=== PATIENT | female | born 2000 | race Caucasian/White ===

== ENCOUNTER 2023-03-30 22:33 | Emergency (ER) | payer OTHER, SELFPAY ==
[2023-03-30 22:36] VITALS: BP 145/82; PULSE 78; RESP 16; TEMP 36.1; O2SAT 100; BMI 35.9
--- NOTE | 2023-03-30 22:47 | ED.GENADULT ---
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 R hand is painful /swollen. 22-year-old woman presenting to the emergency depart with concern of right hand pain. 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 Cow head struck her right hand into a metal shoot, stantion? She was recommended to be seen but if it was up to her probably would not be seen just yet. Admittedly hurts particularly with flexion of her right hand. No other injuries were noted. Pain is really over the dorsum of the hand. Related Data Home Medications Medication Instructions Recorded Confirmed No Known Home Medications 03/30/23 03/30/23 Allergies Allergy/AdvReac Type Severity Reaction Status Date / Time No Known Drug Allergies Allergy Verified 11/10/21 12:35 Review of Systems Status of ROS: Reports: 6 or more systems reviewed and unremarkable except as noted in History and below [facility] Medical History No significant past medical history Surgical History (Updated 03/30/23 @ 23:03 by Jeffry Brown RN) No significant past surgical history Social History Smoking Status: Never smoker Second hand tobacco smoke exposure: No How often do you have a drink containing alcohol: never How often do you have six or more drinks on one occasion: Never AUDIT-C Alcohol total score: 0 Non-prescribed substance use: denies use Exam Narrative: Exam Narrative: Very pleasant. Dressed in work attire. Tall. Favoring the right hand little bit. Gestures to the area of pain as the 2nd and 3rd metacarpals in particular. There is mild swelling and erythema over the dorsum of the hand. Does have full flexion extension with good strength. Also just distal to the PIP of the 3rd finger on the dorsal surface there is a mild line of erythema without notable swelling. Not particularly tender to palpation here. I do suspect Ms. Ovalle has pretty good pain tolerance. She is tender to palpation over the dorsum of the hand particularly over that 2nd and 3rd metacarpal. Const: Vital Signs, click to edit/add: Vital Signs - 24 hr 03/30/23 22:36 03/30/23 23:55 03/30/23 23:56 Temperature 97.0 F L 98.2 F 98.2 F Pulse Rate [Pulse Oximeter] 78 74 74 Respiratory Rate 16 16 16 Blood Pressure [Ri t Upper Arm] 145/82 H 135/74 135/74 Pulse Oximetry 100 100 Oxygen Delivery Me thod Room Air Room Air Documenting provider has reviewed patient's vital signs: yes Course Vital Signs Vital signs: Initial Vital Signs Temperature 97.0 F L 03/30/23 22:36 Temperature Source Temporal Artery Scan 03/30/23 22:36 Pulse Rate 78 03/30/23 22:36 Respiratory Rate 16 03/30/23 22:36 Blood Pressure 145/82 H 03/30/23 22:36 Blood Pressure Mean 103 03/30/23 22:36 Blood Pressure Position Sitting 03/30/23 22:36 Pulse Oximetry 100 03/30/23 22:36 Oxygen Delivery Method Room Air 03/30/23 22:36 Vital Signs Temperature 97.0 F L 03/30/23 22:36 Pulse Rate 78 03/30/23 22:36 Respiratory Rate 16 03/30/23 22:36 Blood Pressure 145/82 H 03/30/23 22:36 Pulse Oximetry 100 03/30/23 22:36 Oxygen Delivery Method Room Air 03/30/23 22:36 Temperature 98.2 F 03/30/23 23:56 Pulse Rate 74 03/30/23 23:56 Respiratory Rate 16 03/30/23 23:56 Blood Pressure 135/74 03/30/23 23:56 Pulse Oximetry 100 03/30/23 23:55 Oxygen Delivery Method Room Air 03/30/23 23:55 Medical Decision Making MDM Narrative Medical decision making narrative: Not an uncommon mechanism for fracture. Enough pain and swelling to warrant imaging I think. I think more likely though it is bruise of some sort. Hematoma? Does not appear to have any tendinous or ligamentous injury. Offered pain medicine and ice. She would like an ice pack X-ray of the hand reviewed by me -- I can appreciate soft tissue swelling but no acute bony abnormality. Ultimately she did depart the emergency department pending Radiology over-read. We did discuss wearing an arm sling. I suspect disinclined to a splint for comfort at least as without fracture. Declined arm sling. Anticipates treating with ibuprofen/acetaminophen. Ultimately radiology over-read concurs. See patient discharge plan Discharge Plan Discharge Clinical Impression: Contusion of hand Patient Disposition: Home, Self-Care Condition: Improved Additional Instructions: Elevate for comfort. Would consider icing 2-3 times daily over the next few days. Can take up to 800 mg ibuprofen up to 1000 mg of acetaminophen per dose. Follow-up if simply not improved in 7-10 days. I will call you if Radiology says anything different about your x-rays. Prescriptions: No Action No Known Home Medications Follow Up/Referrals: Provider,Not a Local [Primary Care Provider] - Stand Alone Forms: [employer] Info Instructions
--- NOTE | 2023-03-30 22:59 | CRLHL7_ITS ---
For Patients: As a result of the Cures Act, medical imaging exams and procedure reports are released immediately into your electronic medical record. You may view this report before your referring provider. If you have questions, please contact your health care provider. INDICATION: Crush injury, crush injury to right hand, 2nd and 3rd metacarpal TECHNIQUE: Hand radiograph 3 views right COMPARISON: None FINDINGS: Bone: No acute fractures or aggressive bone lesions are identified. Joint: The carpal and metacarpal-phalangeal joints are unremarkable in appearance. The interphalangeal joints are normal in appearance. Soft tissue: Unremarkable. No radiopaque foreign bodies are seen. IMPRESSION: 1. No acute osseous injuries or abnormalities are noted. Dictated by: Dmitry Rodriguez MD @ 03/30/2023 23:57:00 (Electronically Signed)
[2023-03-30 23:55] VITALS: BP 135/74; PULSE 74; RESP 16; TEMP 36.8; O2SAT 100
[2023-03-30 23:56] VITALS: BP 135/74; PULSE 74; RESP 16; TEMP 36.8
== END 2023-03-30 23:56 | disposition home or self-care (01) ==
PROVIDERS: Emergency Provider Family Medicine
DX: S60.221A Contusion of right hand, initial encounter (principal); Y99.0 Civilian activity done for income or pay
CPT/HCPCS: 73130; 99283; 99284